=== PATIENT | female | born 1995 | race Two or more races ===

== ENCOUNTER 2024-02-25 06:03 | Emergency (ER) | payer OTHER ==
[~2024-02-25] VITALS: Ht 167.6 cm; Wt 100.7 kg
[2024-02-25] MEDS ORDERED: TRAMADOL HCL 50 MG TABLET PO STA (08:20)
[2024-02-25] MEDS ORDERED: DEXAMETHASONE SODIUM PHOSPHATE 4 MG/ML VIAL IM STA (08:20)
[2024-02-25] MEDS ORDERED: DEXAMETHASONE SODIUM PHOSPHATE 4 MG/ML VIAL ONE (08:31)
== END 2024-02-25 09:00 | disposition home or self-care (01) ==
LOC: ER 06:04
DX: H66.90 Otitis media, unspecified, unspecified ear (principal)